=== PATIENT | female | born 1960 | race Hispanic/Latino ===

== ENCOUNTER 2025-04-28 20:20 | Emergency (ER) | payer BC, OTHER ==
[~2025-04-28] VITALS: Ht 162.6 cm; Wt 71.2 kg
[~2025-04-28 20:20] MED LIST: BENZONATATE100 MG PO; CLARITIN10 MG PO; FLONASE ALLERG9.9 ML INH; METFORMIN HCL500 MG PO; METOPROLOL SUCC50 MG PO; MUCINEX DM ER1 EAC1 PO; NAPROXEN375 MG PEG
[2025-04-28 20:23] VITALS: PULSE 72; RESP 18; TEMP 97.9
[2025-04-28] MEDS ORDERED: CEPHALEXIN500 MG PO (21:24)
[2025-04-28] MEDS: BACITRACIN ZINC 0.9GM TP ONE (21:30)
[2025-04-28 21:46] VITALS: BP 138/81; PULSE 72; RESP 18; TEMP 97.9; O2SAT 98
== END 2025-04-28 21:31 | disposition home or self-care (01) ==
LOC: MERGE 21:05 → FSED 21:05
DX: L03.319 Cellulitis of trunk, unspecified (principal); L25.9 Unspecified contact dermatitis, unspecified cause; I10 Essential (primary) hypertension; E11.9 Type 2 diabetes mellitus without complications; E78.5 Hyperlipidemia, unspecified; Z87.442 Personal history of urinary calculi
CPT/HCPCS: 99284